=== PATIENT | female | born 1995 | race Caucasian/White ===

== ENCOUNTER 2017-05-24 13:49 | Emergency (ER) | payer MEDICAID ==
[~2017-05-24] VITALS: Ht 162.6 cm; Wt 104.0 kg
[2017-05-24 14:05] VITALS: BP 130/80
== END 2017-05-24 19:11 | disposition left against medical advice (07) ==
LOC: ER 13:49
DX: R11.2 Nausea with vomiting, unspecified (principal); Z53.21 Procedure and treatment not carried out due to patient leaving prior to being seen by health care provider

== ENCOUNTER 2020-01-10 22:03 | Emergency (ER) | payer MEDICAID ==
[~2020-01-10] VITALS: Ht 170.2 cm; Wt 75.0 kg
[2020-01-10] MEDS ORDERED: LORAZEPAM 1MG TABLET PO ONE (23:15)
[2020-01-11 00:10] LABS: BASOPHILS % 0.5 % (0.0-2.0); EOSINOPHILS % 3.8 % (0.0-5.0); HEMATOCRIT. 40.3 % (36.0-48.0); HEMOGLOBIN. 13.9 g/dL (12.0-16.0); LYMPHOCYTES % 24.2 % (20.0-50.0); MEAN CORPUSCULAR HEMOGLOBIN 31.9 pg (28.0-32.0); MEAN CORPUSCULAR VOLUME 92.6 fL (81.0-99.0); MEAN PLATELET VOLUME 9.1 fl (7.4-10.4); MONOCYTES % 6.8 % (2.0-8.0); NEUTROPHILS % 64.7 % (40.0-76.0); PLATELET 301 x1000/uL (130-400); RED BLOOD CELL COUNT 4.35 mill/uL (4.2-5.4); RED CELL DISTRIBUTION WIDTH 13.3 % (11.6-14.6)
[2020-01-11 00:20] LABS: CHLORIDE 103 mEq/L (98-107)
[2020-01-11 00:22] LABS: OPIATES URINE SCREEN NEGATIVE (NEGATIVE); PHENCYCLIDINE URINE SCREEN NEGATIVE (NEGATIVE)
[2020-01-11 00:23] LABS: *AMPHETAMINES SCREEN URINE NEGATIVE (NEGATIVE); *BARBITURATES SCREEN URINE NEGATIVE (NEGATIVE); *BENZODIAZEPINES SCREEN URINE NEGATIVE (NEGATIVE); *COCAINE SCREEN URINE NEGATIVE (NEGATIVE); CANNABINOID URINE SCREEN NEGATIVE (NEGATIVE); METHADONE URINE SCREEN NEGATIVE (NEGATIVE)
[2020-01-11 00:25] LABS: ETHANOL BLOOD < 10 mg/dL
[2020-01-11 09:04] VITALS: BP 128/73
== END 2020-01-11 09:13 | disposition home or self-care (01) ==
LOC: ER 22:03
DX: F41.9 Anxiety disorder, unspecified (principal); R45.851 Suicidal ideations
CPT/HCPCS: 36415; 80048; 80305; 80307; 80320; 80329; 81025; 85025; 93005; 99285; G0480

== ENCOUNTER 2020-02-20 02:12 | Emergency (ER) | payer MEDICAID | END 2020-02-20 03:15 | disposition left against medical advice (07) | LOC: ER 02:12 | DX: Z53.21 Procedure and treatment not carried out due to patient leaving prior to being seen by health care provider (principal) ==

== ENCOUNTER 2020-03-05 15:36 | Emergency (ER) | payer MEDICAID ==
[~2020-03-05] VITALS: Ht 162.6 cm; Wt 107.0 kg
[2020-03-05 15:48] VITALS: BP 138/93
== END 2020-03-05 18:59 | disposition left against medical advice (07) ==
LOC: ER 15:36
DX: Z53.21 Procedure and treatment not carried out due to patient leaving prior to being seen by health care provider (principal)

== ENCOUNTER 2020-04-22 13:29 | Emergency (ER) | payer MEDICAID ==
[~2020-04-22] VITALS: Ht 167.6 cm; Wt 110.0 kg
[2020-04-22] MEDS ORDERED: ALPRAZOLAM 0.25 MG TABLET PO ONE (13:45)
[2020-04-22 14:09] VITALS: BP 121/80
== END 2020-04-22 14:39 | disposition home or self-care (01) ==
LOC: ER 13:29
DX: F41.0 Panic disorder [episodic paroxysmal anxiety] (principal)
CPT/HCPCS: 81025; 99283

== ENCOUNTER 2020-04-22 20:20 | Emergency (ER) | payer MEDICAID ==
[~2020-04-22] VITALS: Ht 162.6 cm; Wt 103.0 kg
[2020-04-22] MEDS ORDERED: KETOROLAC 60MG/2ML VIAL IM STA (21:04)
[2020-04-22 22:17] LABS: CLARITY URINE CLEAR (CLEAR); COLOR URINE YELLOW (YELLOW); KETONES URINE NEGATIVE (NEGATIVE); LEUKOCYTE ESTERASE URINE TRACE (NEGATIVE); NITRITE URINE NEGATIVE (NEGATIVE); OCCULT BLOOD URINE 1+ (NEGATIVE); PROTEIN URINE NEGATIVE (NEGATIVE); SPECIFIC GRAVITY URINE 1.004 (1.005-1.030); UROBILINOGEN URINE 0.2 E.U./dL (0.2-1.0)
[2020-04-22 22:52] VITALS: BP 121/81
== END 2020-04-22 23:25 | disposition home or self-care (01) ==
LOC: ER 20:20
DX: N39.0 Urinary tract infection, site not specified (principal); F41.9 Anxiety disorder, unspecified
CPT/HCPCS: 71045; 81003; 81025; 93005; 96372; 99285; J1885

== ENCOUNTER 2021-03-28 20:53 | Emergency (ER) | payer BC, MEDICAID ==
[~2021-03-28] VITALS: Ht 162.6 cm; Wt 109.0 kg
[2021-03-28] MEDS ORDERED: IBUP-2029 MT (23:13)
[2021-03-28] MEDS ORDERED: XLV MT (23:13)
[2021-03-28] MEDS ORDERED: ACET-2708 MT (23:13)
[2021-03-28] MEDS ORDERED: KETOROLAC 30MG/ML VIAL IM ONE (23:15)
[2021-03-29 00:05] VITALS: BP 134/78
== END 2021-03-29 00:05 | disposition home or self-care (01) ==
LOC: ER 21:27
DX: J02.9 Acute pharyngitis, unspecified (principal); R19.7 Diarrhea, unspecified; R51.9 Headache, unspecified; Z20.822 Contact with and (suspected) exposure to COVID-19
CPT/HCPCS: 87070; 96372; 99283; C9803; J1885; U0003; U0005

== ENCOUNTER 2021-04-14 12:43 | Emergency (ER) | payer BC, MEDICAID ==
[~2021-04-14] VITALS: Ht 162.6 cm; Wt 109.0 kg
[~2021-04-14 12:43] MED LIST: ACET-2708 MT; IBUP-2029 MT; XLV MT
[2021-04-14 12:53] VITALS: BP 118/82
== END 2021-04-14 23:49 | disposition left against medical advice (07) ==
LOC: ER 13:11
DX: R06.02 Shortness of breath (principal); Z53.21 Procedure and treatment not carried out due to patient leaving prior to being seen by health care provider
CPT/HCPCS: 81025

== ENCOUNTER 2021-09-21 22:48 | Emergency (ER) | payer MEDICAID ==
[~2021-09-21] VITALS: Ht 162.6 cm; Wt 108.8 kg
[2021-09-22 00:51] LABS: BASOPHILS % 0.4 % (0.0-2.0); EOSINOPHILS % 3.8 % (0.0-5.0); HEMATOCRIT. 39.2 % (36.0-48.0); HEMOGLOBIN. 13.5 g/dL (12.0-16.0); MEAN CORPUSCULAR HEMOGLOBIN 31.2 pg (28.0-32.0); MEAN CORPUSCULAR VOLUME 90.4 fL (81.0-99.0); MONOCYTES % 10.1 % (2.0-8.0); NEUTROPHILS % 62.7 % (40.0-76.0); PLATELET 285 x1000/uL (130-400); RED BLOOD CELL COUNT 4.33 mill/uL (4.2-5.4); RED CELL DISTRIBUTION WIDTH 13.1 % (11.6-14.6)
[2021-09-22 00:55] LABS: CHLORIDE 106 mEq/L (98-107)
[2021-09-22 02:49] VITALS: BP 103/62
== END 2021-09-22 02:52 | disposition home or self-care (01) ==
LOC: ER 22:48
DX: I47.1 Supraventricular tachycardia (principal); Z20.822 Contact with and (suspected) exposure to COVID-19
CPT/HCPCS: 36415; 71045; 80053; 81025; 83880; 84484; 85025; 87426; 93005; 99285

== ENCOUNTER 2021-09-27 20:48 | Emergency (ER) | payer MEDICAID ==
[~2021-09-27] VITALS: Ht 167.6 cm; Wt 80.0 kg
[2021-09-27] MEDS ORDERED: LORAZEPAM 1MG TABLET PO ONE (21:15)
[2021-09-27] MEDS ORDERED: SODIUM CHLORIDE 0.9% 1,000 ML IV ONE (21:15)
[2021-09-27 21:46] LABS: BASOPHILS % 0.6 % (0.0-2.0); EOSINOPHILS % 3.2 % (0.0-5.0); HEMATOCRIT. 43.2 % (36.0-48.0); HEMOGLOBIN. 14.3 g/dL (12.0-16.0); LYMPHOCYTES % 25.8 % (20.0-50.0); MEAN CORPUSCULAR HEMOGLOBIN 30.3 pg (28.0-32.0); MEAN CORPUSCULAR VOLUME 91.4 fL (81.0-99.0); MEAN PLATELET VOLUME 8.9 fl (7.4-10.4); NEUTROPHILS % 62.4 % (40.0-76.0); PLATELET 319 x1000/uL (130-400); RED BLOOD CELL COUNT 4.72 mill/uL (4.2-5.4); RED CELL DISTRIBUTION WIDTH 13.1 % (11.6-14.6)
[2021-09-27 21:56] LABS: CHLORIDE 104 mEq/L (98-107)
[2021-09-27 21:57] LABS: *AMPHETAMINES SCREEN URINE NEGATIVE (NEGATIVE); *BARBITURATES SCREEN URINE NEGATIVE (NEGATIVE); *BENZODIAZEPINES SCREEN URINE NEGATIVE (NEGATIVE); *COCAINE SCREEN URINE NEGATIVE (NEGATIVE)
[2021-09-27 21:58] LABS: CANNABINOID URINE SCREEN NEGATIVE (NEGATIVE); METHADONE URINE SCREEN NEGATIVE (NEGATIVE); OPIATES URINE SCREEN NEGATIVE (NEGATIVE); PHENCYCLIDINE URINE SCREEN NEGATIVE (NEGATIVE)
[2021-09-27 22:02] LABS: ETHANOL BLOOD < 10 mg/dL
[2021-09-27 22:15] LABS: HCG SCREEN NEGATIVE
[2021-09-27] MEDS ORDERED: HYDR-3735 MT (23:45)
[2021-09-28] VITALS: BP 110/63
== END 2021-09-28 00:18 | disposition home or self-care (01) ==
LOC: ER 20:48
DX: R00.2 Palpitations (principal); F41.9 Anxiety disorder, unspecified; I47.1 Supraventricular tachycardia
CPT/HCPCS: 36415; 71045; 80053; 80305; 80320; 81025; 83690; 83880; 84484; 84703; 85025; 93005; 96360; 96361; 99285; J7030; G0480

== ENCOUNTER 2021-09-29 20:09 | Emergency (ER) | payer MEDICAID ==
[~2021-09-29] VITALS: Ht 162.6 cm; Wt 106.0 kg
[~2021-09-29 20:09] MED LIST changes: +HYDR-3735 MT
[2021-09-29] MEDS ORDERED: LORAZEPAM 2MG/ML CPJ IV ONE (20:45)
[2021-09-29] MEDS ORDERED: SODIUM CHLORIDE 0.9% 1,000 ML IV ONE (20:45)
[2021-09-29 21:44] LABS: BASOPHILS % 0.7 % (0.0-2.0); EOSINOPHILS % 2.9 % (0.0-5.0); HEMATOCRIT. 41.2 % (36.0-48.0); HEMOGLOBIN. 14.4 g/dL (12.0-16.0); MEAN CORPUSCULAR HEMOGLOBIN 31.7 pg (28.0-32.0); MEAN CORPUSCULAR VOLUME 90.7 fL (81.0-99.0); MEAN PLATELET VOLUME 9.5 fl (7.4-10.4); MONOCYTES % 9.9 % (2.0-8.0); NEUTROPHILS % 57.5 % (40.0-76.0); PLATELET 341 x1000/uL (130-400); RED BLOOD CELL COUNT 4.54 mill/uL (4.2-5.4); RED CELL DISTRIBUTION WIDTH 13.3 % (11.6-14.6)
[2021-09-29 21:54] LABS: CHLORIDE 104 mEq/L (98-107)
[2021-09-29 21:55] LABS: CLARITY URINE CLEAR (CLEAR); COLOR URINE YELLOW (YELLOW); KETONES URINE NEGATIVE (NEGATIVE); LEUKOCYTE ESTERASE URINE NEGATIVE (NEGATIVE); NITRITE URINE NEGATIVE (NEGATIVE); OCCULT BLOOD URINE 2+ (NEGATIVE); PH URINE 7.5 (4.5-8.0); PROTEIN URINE NEGATIVE (NEGATIVE); SPECIFIC GRAVITY URINE 1.005 (1.005-1.030); UROBILINOGEN URINE 0.2 E.U./dL (0.2-1.0)
[2021-09-29 21:56] LABS: HCG SCREEN NEGATIVE
[2021-09-29 21:58] LABS: ETHANOL BLOOD < 10 mg/dL
[2021-09-29 22:06] LABS: *AMPHETAMINES SCREEN URINE NEGATIVE (NEGATIVE); *BARBITURATES SCREEN URINE NEGATIVE (NEGATIVE); *BENZODIAZEPINES SCREEN URINE NEGATIVE (NEGATIVE); *COCAINE SCREEN URINE NEGATIVE (NEGATIVE)
[2021-09-29 22:07] LABS: CANNABINOID URINE SCREEN NEGATIVE (NEGATIVE); METHADONE URINE SCREEN NEGATIVE (NEGATIVE); OPIATES URINE SCREEN NEGATIVE (NEGATIVE); PHENCYCLIDINE URINE SCREEN NEGATIVE (NEGATIVE)
[2021-09-30] MEDS ORDERED: ABIL5 MT (13:05)
[2021-09-30] MEDS ORDERED: FLUO20CA33 MT (13:05)
[2021-09-30] MEDS ORDERED: DILTIAZEM HCL 300MG CAPSULE SR 24HR PO ONE (17:15)
[2021-09-30] MEDS ORDERED: DILTIAZEM HCL 120MG CAPSULE CD 24HR PO NR (17:30)
[2021-09-30] MEDS ORDERED: DILTIAZEM HCL 180MG CAPSULE CD 24HR PO NR (17:30)
[2021-09-30] MEDS ORDERED: LORAZEPAM 1MG TABLET PO ONE (22:00)
[2021-10-01] MEDS: FLUOXETINE HCL 20MG CAPSULE PO SCH (09:55)
[2021-10-01] MEDS: ARIPIPRAZOLE 5MG TABLET PO SCH (09:55)
[2021-10-01] MEDS ORDERED: DILTIAZEM HCL 180MG CAPSULE CD 24HR PO NR (17:45)
[2021-10-02] MEDS ORDERED: LORAZEPAM 1MG TABLET PO ONE (10:00)
[2021-10-02] MEDS: ARIPIPRAZOLE 5MG TABLET PO SCH (10:00)
[2021-10-02] MEDS: FLUOXETINE HCL 20MG CAPSULE PO SCH (10:00)
[2021-10-02 10:02] LABS: BASOPHILS % 0.6 % (0.0-2.0); EOSINOPHILS % 2.8 % (0.0-5.0); HEMATOCRIT. 40.4 % (36.0-48.0); HEMOGLOBIN. 13.7 g/dL (12.0-16.0); LYMPHOCYTES % 20.6 % (20.0-50.0); MEAN CORPUSCULAR HEMOGLOBIN 30.9 pg (28.0-32.0); MONOCYTES % 4.1 % (2.0-8.0); NEUTROPHILS % 71.9 % (40.0-76.0); PLATELET 321 x1000/uL (130-400); RED BLOOD CELL COUNT 4.43 mill/uL (4.2-5.4); RED CELL DISTRIBUTION WIDTH 13.2 % (11.6-14.6)
[2021-10-02 10:10] LABS: CHLORIDE 102 mEq/L (98-107)
[2021-10-03] MEDS: ARIPIPRAZOLE 5MG TABLET PO SCH ×2 (09:00→10:04)
[2021-10-03] MEDS: FLUOXETINE HCL 20MG CAPSULE PO SCH (10:04)
[2021-10-03] MEDS ORDERED: LORAZEPAM 0.5MG TABLET PO ONE (15:00)
[2021-10-03] MEDS ORDERED: ONDANSETRON 4MG ODT PO ONE (18:15)
[2021-10-03] MEDS ORDERED: ACETAMINOPHEN 325MG TABLET PO ONE (18:15)
[2021-10-03] MEDS ORDERED: LORAZEPAM 1MG TABLET PO ONE (20:30)
[2021-10-03 22:50] VITALS: BP 121/76
== END 2021-10-04 00:11 ==
LOC: ER 20:09
DX: F41.9 Anxiety disorder, unspecified (principal); R45.851 Suicidal ideations; R00.0 Tachycardia, unspecified; Z79.899 Other long term (current) drug therapy; Z20.822 Contact with and (suspected) exposure to COVID-19
CPT/HCPCS: 36415; 71045; 80053; 80305; 80307; 80320; 80329; 81003; 81025; 83880; 84443; 84484; 84703; 85025; 93005; 96361; 96374; 99285; C9803; J2060; J7030; Q0162; U0005; G0480

== ENCOUNTER 2021-10-16 06:45 | Emergency (ER) | payer MEDICAID ==
[~2021-10-16] VITALS: Ht 162.6 cm; Wt 102.0 kg
[~2021-10-16 06:45] MED LIST changes: +ABIL5 MT; +FLUO20CA33 MT
[2021-10-16] MEDS ORDERED: LORAZEPAM 2MG/ML CPJ IV STA (06:50)
[2021-10-16] MEDS ORDERED: TEMAZEPAM 15MG CAPSULE PO PRN (08:00)
[2021-10-16 08:04] LABS: BASOPHILS % 0.5 % (0.0-2.0); EOSINOPHILS % 3.1 % (0.0-5.0); HEMATOCRIT. 38.4 % (36.0-48.0); HEMOGLOBIN. 13.2 g/dL (12.0-16.0); LYMPHOCYTES % 19.5 % (20.0-50.0); MEAN CORPUSCULAR HEMOGLOBIN 31.1 pg (28.0-32.0); MEAN CORPUSCULAR VOLUME 90.5 fL (81.0-99.0); MEAN PLATELET VOLUME 8.9 fl (7.4-10.4); NEUTROPHILS % 68.9 % (40.0-76.0); PLATELET 322 x1000/uL (130-400); RED BLOOD CELL COUNT 4.24 mill/uL (4.2-5.4); RED CELL DISTRIBUTION WIDTH 12.6 % (11.6-14.6)
[2021-10-16 08:08] LABS: CHLORIDE 104 mEq/L (98-107)
[2021-10-16 08:12] LABS: ETHANOL BLOOD < 10 mg/dL
[2021-10-16 08:19] LABS: HCG SCREEN NEGATIVE
[2021-10-16] MEDS ORDERED: BUPROPION HCL 150MG TABLET XL 24HR PO SCH (09:00)
[2021-10-16] MEDS ORDERED: ARIPIPRAZOLE 5MG TABLET PO SCH (09:00)
[2021-10-16 11:41] LABS: CLARITY URINE CLEAR (CLEAR); COLOR URINE YELLOW (YELLOW); KETONES URINE NEGATIVE (NEGATIVE); LEUKOCYTE ESTERASE URINE TRACE (NEGATIVE); NITRITE URINE NEGATIVE (NEGATIVE); OCCULT BLOOD URINE TRACE (NEGATIVE); PH URINE 7.5 (4.5-8.0); PROTEIN URINE NEGATIVE (NEGATIVE); SPECIFIC GRAVITY URINE 1.005 (1.005-1.030); UROBILINOGEN URINE 0.2 E.U./dL (0.2-1.0)
[2021-10-16 12:15] LABS: *AMPHETAMINES SCREEN URINE NEGATIVE (NEGATIVE); *BARBITURATES SCREEN URINE NEGATIVE (NEGATIVE); *BENZODIAZEPINES SCREEN URINE NEGATIVE (NEGATIVE)
[2021-10-16 12:16] LABS: CANNABINOID URINE SCREEN NEGATIVE (NEGATIVE); OPIATES URINE SCREEN NEGATIVE (NEGATIVE); PHENCYCLIDINE URINE SCREEN NEGATIVE (NEGATIVE)
[2021-10-16 12:17] LABS: *COCAINE SCREEN URINE NEGATIVE (NEGATIVE)
[2021-10-16 16:04] VITALS: BP 114/77
[2021-10-18 13:50] LABS: METHADONE URINE SCREEN NEGATIVE (NEGATIVE)
== END 2021-10-16 16:20 | disposition home or self-care (01) ==
LOC: ER 06:45
DX: F23 Brief psychotic disorder (principal); F41.9 Anxiety disorder, unspecified; F41.0 Panic disorder [episodic paroxysmal anxiety]; F22 Delusional disorders; I49.8 Other specified cardiac arrhythmias; Z20.822 Contact with and (suspected) exposure to COVID-19
CPT/HCPCS: 36415; 80053; 80305; 80307; 80320; 80329; 81003; 82962; 84443; 84703; 85025; 87426; 93005; 96374; 99285; J2060; G0480

== ENCOUNTER 2022-04-01 14:27 | Emergency (ER) | payer MEDICAID ==
[~2022-04-01] VITALS: Ht 162.6 cm; Wt 90.0 kg
[2022-04-01 14:46] VITALS: BP 141/95
[2022-04-01] MEDS ORDERED: IBUPROFEN 400MG TABLET PO ONE (15:30)
[2022-04-01] MEDS ORDERED: HYDR-4001 MT (17:29)
[2022-04-01] MEDS ORDERED: IBUP-2028 MT (17:29)
[2022-04-01] MEDS ORDERED: HYDROCODONE/ACETAMINOPHEN 5/325MG TABLET PO ONE (17:30)
== END 2022-04-01 18:51 | disposition home or self-care (01) ==
LOC: ER 14:27
DX: S92.902A Unspecified fracture of left foot, initial encounter for closed fracture (principal); W01.0XXA Fall on same level from slipping, tripping and stumbling without subsequent striking against object, initial encounter; Y93.89 Activity, other specified; Y92.89 Other specified places as the place of occurrence of the external cause; Y99.8 Other external cause status
CPT/HCPCS: 29515; 73610; 73630; 81025; 99284

== ENCOUNTER 2022-06-01 16:47 | Emergency (ER) | payer OTHER ==
[~2022-06-01] VITALS: Ht 165.1 cm; Wt 82.0 kg
[~2022-06-01 16:47] MED LIST changes: +DILT60TA35 PO; +HYDR-4001 MT; +IBUP-2028 MT
[2022-06-01] MEDS ORDERED: SODIUM CHLORIDE 0.9% 1,000 ML IV ONE (18:00)
[2022-06-01 18:03] LABS: BASOPHILS % 0.6 % (0.0-2.0); EOSINOPHILS % 3.4 % (0.0-5.0); HEMATOCRIT. 36.2 % (36.0-48.0); HEMOGLOBIN. 12.8 g/dL (12.0-16.0); MEAN CORPUSCULAR HEMOGLOBIN 31.9 pg (28.0-32.0); MEAN CORPUSCULAR VOLUME 90.2 fL (81.0-99.0); MONOCYTES % 7.7 % (2.0-8.0); NEUTROPHILS % 60.3 % (40.0-76.0); PLATELET 360 x1000/uL (130-400); RED BLOOD CELL COUNT 4.01 mill/uL (4.2-5.4); RED CELL DISTRIBUTION WIDTH 13.6 % (11.6-14.6)
[2022-06-01 18:08] LABS: CHLORIDE 104 mEq/L (98-107)
[2022-06-01 18:21] LABS: PROTHROMBIN TIME 10.3 sec (9.6-11.0)
[2022-06-01 18:35] LABS: CLARITY URINE CLEAR (CLEAR); COLOR URINE YELLOW (YELLOW); KETONES URINE NEGATIVE (NEGATIVE); LEUKOCYTE ESTERASE URINE NEGATIVE (NEGATIVE); NITRITE URINE NEGATIVE (NEGATIVE); OCCULT BLOOD URINE NEGATIVE (NEGATIVE); PROTEIN URINE NEGATIVE (NEGATIVE); UROBILINOGEN URINE 0.2 E.U./dL (0.2-1.0)
[2022-06-01] MEDS ORDERED: POTASSIUM CHLORIDE 20MEQ/PACKET PO NR (19:45)
[2022-06-01 22:20] VITALS: BP 122/72
== END 2022-06-01 22:21 | disposition home or self-care (01) ==
LOC: ER 16:47
DX: R00.2 Palpitations (principal); R07.89 Other chest pain; R42 Dizziness and giddiness; F41.9 Anxiety disorder, unspecified; Z79.899 Other long term (current) drug therapy
CPT/HCPCS: 36415; 71045; 80053; 81003; 84484; 85025; 85610; 99284; J7030

== ENCOUNTER 2022-07-25 16:00 | Emergency (ER) | payer MEDICAID, OTHER ==
[~2022-07-25] VITALS: Ht 172.7 cm; Wt 86.0 kg
[2022-07-25] MEDS ORDERED: SODIUM CHLORIDE 0.9% 1,000 ML IV ONE (16:15)
[2022-07-25 16:50] LABS: BASOPHILS % 0.5 % (0.0-2.0); EOSINOPHILS % 3.6 % (0.0-5.0); HEMATOCRIT. 38.8 % (36.0-48.0); HEMOGLOBIN. 13.2 g/dL (12.0-16.0); LYMPHOCYTES % 23.2 % (20.0-50.0); MEAN PLATELET VOLUME 9.1 fl (7.4-10.4); MONOCYTES % 8.2 % (2.0-8.0); NEUTROPHILS % 64.5 % (40.0-76.0); PLATELET 322 x1000/uL (130-400); RED BLOOD CELL COUNT 4.26 mill/uL (4.2-5.4); RED CELL DISTRIBUTION WIDTH 13.5 % (11.6-14.6)
[2022-07-25 17:05] LABS: CHLORIDE 104 mEq/L (98-107)
[2022-07-25 17:29] LABS: D-DIMER < 0.19 mg/L FEU (<0.50); PARTIAL THROMBOPLASTIN TIME 26.2 sec (23.4-31.0); PROTHROMBIN TIME 10.4 sec (9.6-11.0)
[2022-07-25 20:31] VITALS: BP 124/84
[2022-07-25 22:07] LABS: *BARBITURATES SCREEN URINE NEGATIVE (NEGATIVE); *BENZODIAZEPINES SCREEN URINE NEGATIVE (NEGATIVE); *COCAINE SCREEN URINE NEGATIVE (NEGATIVE); CANNABINOID URINE SCREEN NEGATIVE (NEGATIVE); METHADONE URINE SCREEN NEGATIVE (NEGATIVE); OPIATES URINE SCREEN NEGATIVE (NEGATIVE); PHENCYCLIDINE URINE SCREEN NEGATIVE (NEGATIVE)
[2022-07-25 22:57] LABS: *AMPHETAMINES SCREEN URINE NEGATIVE (NEGATIVE)
== END 2022-07-25 20:32 | disposition home or self-care (01) ==
LOC: ER 16:00
DX: R00.2 Palpitations (principal); F41.9 Anxiety disorder, unspecified; Z79.899 Other long term (current) drug therapy
CPT/HCPCS: 36415; 71045; 80053; 80305; 83880; 84443; 84484; 85025; 85379; 85610; 85730; 93005; 96360; 99285; J7030

== ENCOUNTER 2022-08-03 12:34 | Emergency (ER) | payer MEDICAID ==
[~2022-08-03] VITALS: Ht 170.2 cm; Wt 104.0 kg
[2022-08-03] MEDS ORDERED: LORAZEPAM 1MG TABLET PO ONE (14:00)
[2022-08-03 15:40] VITALS: BP 123/86
[2022-08-03 15:55] LABS: BASOPHILS % 0.5 % (0.0-2.0); EOSINOPHILS % 2.1 % (0.0-5.0); HEMATOCRIT. 41.1 % (36.0-48.0); HEMOGLOBIN. 13.9 g/dL (12.0-16.0); LYMPHOCYTES % 21.1 % (20.0-50.0); MEAN CORPUSCULAR HEMOGLOBIN 31.3 pg (28.0-32.0); MEAN CORPUSCULAR VOLUME 92.2 fL (81.0-99.0); MEAN PLATELET VOLUME 9.4 fl (7.4-10.4); MONOCYTES % 7.3 % (2.0-8.0); PLATELET 332 x1000/uL (130-400); RED BLOOD CELL COUNT 4.46 mill/uL (4.2-5.4); RED CELL DISTRIBUTION WIDTH 13.5 % (11.6-14.6)
== END 2022-08-03 16:10 | disposition left against medical advice (07) ==
LOC: ER 14:01
DX: R00.2 Palpitations (principal); Z98.890 Other specified postprocedural states
CPT/HCPCS: 36415; 71045; 81025; 85025; 99284